=== PATIENT | female | born 1940 | race Caucasian/White ===

== ENCOUNTER 2022-09-11 22:07 | Emergency (ER) | payer BC ==
[~2022-09-11] VITALS: Ht 152.4 cm; Wt 68.0 kg
[2022-09-11 22:16] VITALS: BP 143/78
--- NOTE | 2022-09-11 22:20 | NUR ---
PT WICHO SAAVEDRA. TAKEN TO CHAIR
--- NOTE | 2022-09-11 22:38 | NUR ---
TRISHA ARGUETA [phone], CALLED FOR UPDATE. PT GAVE PERMISSION TO UPDATE.
--- NOTE | 2022-09-11 23:34 | NUR ---
PT WAITING IN LOBBY WITH FAMILY.
--- NOTE | 2022-09-12 00:30 | NUR ---
Patient discharged with v/s stable. Written and verbal after care instructions given and explained. Patient verbalized understanding. Wheel Chair Assisted with by caregiver. All questions addressed prior to discharge. Advised to follow up with PMD.
--- NOTE | 2022-09-12 01:03 | NUR ---
The patient's care was reviewed and supervised by Mercedes Strickland RN, RN.
== END 2022-09-12 00:30 | disposition home or self-care (01) ==
LOC: MED 22:07
DX: S09.90XA Unspecified injury of head, initial encounter (principal); E11.22 Type 2 diabetes mellitus with diabetic chronic kidney disease; I12.9 Hypertensive chronic kidney disease with stage 1 through stage 4 chronic kidney disease, or unspecified chronic kidney disease; N18.9 Chronic kidney disease, unspecified; W01.198A Fall on same level from slipping, tripping and stumbling with subsequent striking against other object, initial encounter; Y93.89 Activity, other specified; Y92.89 Other specified places as the place of occurrence of the external cause; Y99.8 Other external cause status
CPT/HCPCS: 70450; 72125; 72192; 99284